=== PATIENT | female | born 1955 | race Caucasian/White ===

== ENCOUNTER 2016-12-03 16:41 | Emergency (ER) | payer OTHER, MEDICARE, MEDICAID ==
[~2016-12-03] VITALS: Wt 55.3 kg
[~2016-12-03 16:41] MED LIST: AMBIEN5 MG PO; AMOXICILLIN500 M2 PO; ANAPROX DS550 MG PO; ATIVAN1 MG PO; ATIVAN2 MG PO; AUGMENTIN 875 M1 TAB PO; CARAFATE1 G1 PO; CIPRODEX 0.3%-7.5 ML OT; CLARITIN10 MG PO; DARVOCET N 1001 TAB PO; EFFEXOR XR75 M1 PO; EFFEXOR-XR150 MG PO; EFFEXOR75 MG PO; FLAGYL250 MG PO; FLEXERIL10 MG PO; FLEXERIL5 MG PO; HYDROCODONE BIT1 T11 PO; LAMICTAL150 MG PO; LAMICTAL200 MG PO; LOMOTIL 0.025 M1 TA1 PO; MEDROL DOSEPAK4 MG PO; MOTRIN800 MG PO; NAPROSYN500 MG PO; NEXIUM40 MG PO; NORCO 325 MG-51 TAB PO; OTOZIN EAR DROP10 ML OT; PEPCID20 MG PO; PRENATAL1 TA6 PO; PROVENTIL0.09 MG/AC IH; REGLAN10 M1 PO; TOPAMAX100 MG PO; TOPAMAX200 MG PO; VICODIN 5/500 505 MG PO; VOLTAREN50 M1 PO; ZYRTEC10 MG PO
[2016-12-03 16:44] VITALS: BP 121/82
[2016-12-03] MEDS ORDERED: VENLAFAXINE HYD75 M3 PO (16:45)
[2016-12-03] MEDS ORDERED: VENLAFAXINE HY150 M2 PO (16:45)
[2016-12-03] MEDS ORDERED: TOPIRAMATE200 M2 PO (16:45)
[2016-12-03] MEDS ORDERED: LORAZEPAM2 MG PO (16:46)
[2016-12-03] MEDS ORDERED: ESCITALOPRAM OX20 MG PO (16:47)
== END 2016-12-03 18:39 | disposition home or self-care (01) ==
LOC: ED 16:41
DX: S40.021A Contusion of right upper arm, initial encounter (principal); F17.200 Nicotine dependence, unspecified, uncomplicated; Z90.49 Acquired absence of other specified parts of digestive tract; Z98.51 Tubal ligation status; Z79.899 Other long term (current) drug therapy; Z88.6 Allergy status to analgesic agent; Z88.1 Allergy status to other antibiotic agents; V49.59XA Passenger injured in collision with other motor vehicles in traffic accident, initial encounter; Y93.89 Activity, other specified; Y92.481 Parking lot as the place of occurrence of the external cause; Y99.9 Unspecified external cause status

== ENCOUNTER → 2017-01-06 | Outpatient (CLI) | payer MEDICARE, MEDICAID ==
[~2017-01-06] MED LIST changes: +ESCITALOPRAM OX20 MG PO; +LORAZEPAM2 MG PO; +TOPIRAMATE200 M2 PO; +VENLAFAXINE HY150 M2 PO; +VENLAFAXINE HYD75 M3 PO
== END | disposition home or self-care (01) ==
LOC: MAMMO 12-09 13:00 → RAD 12-09 13:30 → MAMMO 12:34
DX: Z12.31 Encounter for screening mammogram for malignant neoplasm of breast (principal); Z13.820 Encounter for screening for osteoporosis; Z78.0 Asymptomatic menopausal state

== ENCOUNTER 2017-09-09 16:47 | Emergency (ER) | payer MEDICARE, MEDICAID ==
[~2017-09-09] VITALS: Ht 157.4 cm; Wt 57.2 kg
[2017-09-09 16:59] VITALS: BP 114/76
[2017-09-09] MEDS ORDERED: AUGMENTIN 875875 MG PO (17:38)
== END 2017-09-09 17:41 | disposition home or self-care (01) ==
LOC: ED 16:47
DX: J01.80 Other acute sinusitis (principal); H92.02 Otalgia, left ear; F17.200 Nicotine dependence, unspecified, uncomplicated; Z90.49 Acquired absence of other specified parts of digestive tract; Z98.51 Tubal ligation status; Z79.899 Other long term (current) drug therapy; Z88.6 Allergy status to analgesic agent; Z88.8 Allergy status to other drugs, medicaments and biological substances

== ENCOUNTER → 2018-02-03 | Day surgery (SDC) | payer MEDICARE, MEDICAID ==
[~2018-02-03] VITALS: Ht 157.4 cm; Wt 55.3 kg
[~2018-02-03] MED LIST changes: +AUGMENTIN 875875 MG PO; +FIBERCON625 MG PO; +SUNMARK OMEPRAZ20 M1 PO
--- NOTE | ~2018-02-03 | O ---
[place], [place] OPERATIVE NOTE NAME: KASSI QUIROGA UNIT #: [id number] ROOM: DOCTOR: LAURA MONTENEGRO MD BIRTHDATE: [birth year] DOS: 02/03/2018 HISTORY OF PRESENT ILLNESS: A 62-year-old patient who has presented with chief complaint of chronic diarrhea, 2-3 watery BM, and dyspepsia. ALLERGIES: DAYPRO AND ULTRAM. FAMILY HISTORY: Noncontributory. PAST SURGICAL HISTORY: Left knee and cholecystectomy. PAST MEDICAL HISTORY: Vitamin D deficiency, hypercholesterolemia, depression, and anxiety. SOCIAL HISTORY: One pack smoker, nonalcohol consumer. PROCEDURE: Today's procedure part of investigation is colonoscopy and panendoscopy. PREMEDICATION: Propofol. SCOPE: Olympus forward-viewing gastroscope Q10 video. REPORT: After putting the patient in left lateral position and application of lubricant to the scope, the scope was introduced. Thereafter, under direct visualization, I advanced through the length of the esophagus without difficulty into gastric pouch. After passing through a small hiatal hernia about 1.5 cm. Gastritis seen and duodenitis noticed both in mild degree. Antral biopsy obtained. Photographic series obtained. The patient was extubated, tolerated the procedure well. IMPRESSION: Hiatal hernia, diverticulosis, and gastritis. PLAN AND DISCUSSION: Omeprazole 20 mg daily. We are going to proceed with colonoscopy. INDICATIONS: The patient has presented with loose stool and change in bowel habit. PROCEDURE: Today's procedure part of investigation is colonoscopy plus photographic series plus biopsy. Piecemeal polypectomy. PREMEDICATION: Propofol. SCOPE: Olympus forward-viewing colonoscope 10L video. REPORT: After putting the patient in left lateral position and application of lubricant to the scope, the scope was introduced. Thereafter, under direct visualization, I advanced through the length of colon without difficulty. Colon is extremely tortuous; however, we managed to visualize the base of the cecum, [place], [place] OPERATIVE NOTE NAME: KASSI QUIROGA UNIT #: [id number] ROOM: DOCTOR: LAURA MONTENEGRO MD BIRTHDATE: [birth year] appendiceal orifice, and ileocecal valve was photographed. Scope was gradually withdrawn along the length of ascending, transverse, and descending colon. Diverticulosis was noticed. Sessile polypoid lesion with piecemeal polypectomy removed. Air was suctioned out. The patient was extubated, tolerated the procedure well. IMPRESSION: Diverticulosis, tortuous colon, and sessile colonic polyp. PLAN AND DISCUSSION: FiberCon 2 tablets b.i.d., would help the consistency of the stool and otherwise we will follow as outpatient. The patient advised to have routine follow up with you in office and with us in [facility] in 2 weeks. Thank you very much indeed. LAURA MONTENEGRO MD CM:OPRECORD:OPERATIVE NOTE [id number] LAURA MONTENEGRO MD 02/15/18 [id number] interface
[2018-02-03 11:30] VITALS: BP 104/56
[2018-02-03 13:12] VITALS: BP 107/57
[2018-02-03 13:20] VITALS: BP 107/63
[2018-02-03 13:45] VITALS: BP 102/61
== END | disposition home or self-care (01) ==
LOC: SDC 02-02 09:30
DX: D12.5 Benign neoplasm of sigmoid colon (principal); K52.9 Noninfective gastroenteritis and colitis, unspecified; K56.2 Volvulus; K57.30 Diverticulosis of large intestine without perforation or abscess without bleeding; K29.50 Unspecified chronic gastritis without bleeding; K29.80 Duodenitis without bleeding; K44.9 Diaphragmatic hernia without obstruction or gangrene; K21.9 Gastro-esophageal reflux disease without esophagitis; F41.8 Other specified anxiety disorders; F17.210 Nicotine dependence, cigarettes, uncomplicated; Z90.49 Acquired absence of other specified parts of digestive tract; Z98.51 Tubal ligation status; Z88.6 Allergy status to analgesic agent; Z88.5 Allergy status to narcotic agent; Z79.899 Other long term (current) drug therapy

== ENCOUNTER 2018-06-05 14:58 | Emergency (ER) | payer MEDICARE, MEDICAID ==
[~2018-06-05] VITALS: Ht 157.4 cm; Wt 55.3 kg
[2018-06-05 14:58] VITALS: BP 123/75
[2018-06-05 15:38] LABS: BASO % 0.7 % (0.0-1.0); EOS # 0.2 10*3/uL (0.0-0.4); EOS % 2.7 % (1.0-4.0); HEMATOCRIT 41.6 % (37.0-47.0); HEMOGLOBIN 13.2 g/dl (12.0-16.0); LYMPH # 2.2 10*3/uL (1.3-4.4); LYMPH % 39.9 % (27.0-41.0); MEAN CELL VOLUME 98.6 fl (81.0-99.0); MEAN CORPUSCULAR HGB 31.3 pg (27.0-31.0); MEAN CORPUSCULAR HGB CONC 31.7 g/dl (33.0-37.0); MEAN PLATELET VOLUME 9.3 fl (9.6-12.3); MONO # 0.2 10*3/uL (0.1-1.0); MONO % 3.8 % (3.0-9.0); NEUT % 52.7 % (47.0-73.0); PLATELET COUNT AUTOMATED 263 10*3/uL (130-400); RED BLOOD COUNT 4.22 10*6/uL (4.10-5.10); RED CELL DISTRI WIDTH 13.3 % (0-14.5); WHITE BLOOD COUNT 5.6 10*3/uL (4.8-10.8)
[2018-06-05 15:55] LABS: ALBUMIN 3.9 gm/dl (3.1-4.5); ALKALINE PHOSPHATASE 88 U/L (45-117); BUN 13 mg/dl (7-24); CHLORIDE 108 mmol/L (98-107); CREATININE 0.96 mg/dL (0.55-1.02); LIPASE 105 U/L (73-393); POTASSIUM 3.7 mmol/L (3.5-5.1); SGOT/AST 15 IU/L (3-35); SGPT/ALT 21 U/L (12-78); SODIUM 139 mmol/L (136-145); TOTAL PROTEIN 7.9 gm/dL (6.4-8.2)
== END 2018-06-05 17:21 | disposition home or self-care (01) ==
LOC: ED 14:58
PROVIDERS: Physician Assistant
DX: R19.7 Diarrhea, unspecified (principal); R53.1 Weakness; R25.2 Cramp and spasm; Z88.6 Allergy status to analgesic agent; Z88.8 Allergy status to other drugs, medicaments and biological substances; Z79.899 Other long term (current) drug therapy; Z90.49 Acquired absence of other specified parts of digestive tract

== ENCOUNTER → 2018-12-05 | Outpatient (CLI) | payer MEDICARE, MEDICAID ==
[~2018-12-05] MED LIST changes: +MACROBID100 M1 PO; +PYRIDIUM100 MG PO
== END | disposition home or self-care (01) ==
LOC: MAMMO 15:00
DX: Z12.31 Encounter for screening mammogram for malignant neoplasm of breast (principal)

== ENCOUNTER → 2020-04-08 | Outpatient (CLI) | payer OTHER, MEDICAID | END | disposition home or self-care (01) | LOC: RAD 13:20 → MAMMO 14:30 | PROVIDERS: ATTEND Nurse Practitioner Primary Care | DX: Z12.31 Encounter for screening mammogram for malignant neoplasm of breast (principal); N64.89 Other specified disorders of breast; Z78.0 Asymptomatic menopausal state ==

== ENCOUNTER → 2020-09-10 | Outpatient (CLI) | payer OTHER, MEDICAID ==
[~2020-09-10] MED LIST changes: +PROTONIX40 MG PO; +REXULTI1 MG PO
== END | disposition home or self-care (01) ==
LOC: COVID19 11:30
PROVIDERS: ATTEND Nurse Practitioner Primary Care
DX: Z01.812 Encounter for preprocedural laboratory examination (principal); Z20.822 Contact with and (suspected) exposure to COVID-19

== ENCOUNTER → 2020-09-15 | Day surgery (SDC) | payer OTHER, MEDICAID ==
[~2020-09-15] VITALS: Ht 157.4 cm; Wt 61.2 kg
[2020-09-15 07:26] VITALS: BP 107/65
[2020-09-15 08:43] VITALS: BP 111/65
[2020-09-15 08:58] VITALS: BP 105/70
[2020-09-15 09:10] VITALS: BP 103/53
[2020-09-15 09:52] VITALS: BP 105/70
== END ==
LOC: SDC 09-11 08:45
PROVIDERS: ATTEND Surgery
DX: R19.7 Diarrhea, unspecified (principal); D12.2 Benign neoplasm of ascending colon; D12.3 Benign neoplasm of transverse colon; D12.5 Benign neoplasm of sigmoid colon; K57.30 Diverticulosis of large intestine without perforation or abscess without bleeding; K29.80 Duodenitis without bleeding; K29.50 Unspecified chronic gastritis without bleeding; K21.9 Gastro-esophageal reflux disease without esophagitis; E78.00 Pure hypercholesterolemia, unspecified; F31.9 Bipolar disorder, unspecified; F41.9 Anxiety disorder, unspecified; Z90.49 Acquired absence of other specified parts of digestive tract; Z86.010 Personal history of colon polyps; Z98.890 Other specified postprocedural states; Z79.899 Other long term (current) drug therapy

== ENCOUNTER → 2020-10-31 | Outpatient (CLI) | payer OTHER, MEDICAID | END | disposition home or self-care (01) | LOC: LAB 13:01 | PROVIDERS: ATTEND Nurse Practitioner Primary Care | DX: M54.9 Dorsalgia, unspecified (principal); Z90.49 Acquired absence of other specified parts of digestive tract ==

== ENCOUNTER → 2020-12-26 | Outpatient (CLI) | payer OTHER, MEDICAID | END | disposition home or self-care (01) | LOC: US 12-22 12:00 | PROVIDERS: ATTEND Nurse Practitioner Primary Care | DX: N32.89 Other specified disorders of bladder (principal); R31.9 Hematuria, unspecified ==

== ENCOUNTER → 2021-03-13 | Outpatient (CLI) | payer OTHER, MEDICAID | END | disposition home or self-care (01) | LOC: RAD 11:15 | PROVIDERS: ATTEND Nurse Practitioner Primary Care | DX: M47.817 Spondylosis without myelopathy or radiculopathy, lumbosacral region (principal); M41.86 Other forms of scoliosis, lumbar region; Z90.49 Acquired absence of other specified parts of digestive tract; G89.29 Other chronic pain ==

== ENCOUNTER 2021-04-06 09:17 | Emergency (ER) | payer OTHER, MEDICAID ==
[~2021-04-06] VITALS: Ht 157.4 cm; Wt 61.2 kg
[2021-04-06 09:22] VITALS: BP 124/82
[2021-04-06] MEDS ORDERED: HYDROCODONE-AC1 EAC1 PO (10:11)
[2021-04-06] MEDS ORDERED: SILVADENE,SSD C50 GM T (10:11)
== END 2021-04-06 10:21 | disposition home or self-care (01) ==
LOC: ED 09:17
DX: T24.012A Burn of unspecified degree of left thigh, initial encounter (principal); T31.0 Burns involving less than 10% of body surface; Z88.8 Allergy status to other drugs, medicaments and biological substances; Z79.899 Other long term (current) drug therapy; X10.0XXA Contact with hot drinks, initial encounter; Y93.89 Activity, other specified; Y92.89 Other specified places as the place of occurrence of the external cause; Y99.8 Other external cause status

== ENCOUNTER 2021-04-12 09:06 | Emergency (ER) | payer OTHER, MEDICAID ==
[~2021-04-12] VITALS: Ht 157.4 cm; Wt 61.2 kg
[~2021-04-12 09:06] MED LIST changes: +HYDROCODONE-AC1 EAC1 PO; +SILVADENE,SSD C50 GM T
[2021-04-12 09:15] VITALS: BP 125/70
[2021-04-12] MEDS ORDERED: HYDROCODONE-AC1 EAC1 PO (09:42)
== END 2021-04-12 10:18 | disposition home or self-care (01) ==
LOC: ED 09:06
DX: T24.002A Burn of unspecified degree of unspecified site of left lower limb, except ankle and foot, initial encounter (principal); X12.XXXA Contact with other hot fluids, initial encounter; Y93.89 Activity, other specified; Y92.89 Other specified places as the place of occurrence of the external cause; Y99.8 Other external cause status

== ENCOUNTER → 2021-04-14 | Outpatient (CLI) | payer OTHER, MEDICAID | LOC: WOUNDCARE 01:32 | PROVIDERS: ATTEND Nurse Practitioner | DX: T24.312A Burn of third degree of left thigh, initial encounter (principal); T31.0 Burns involving less than 10% of body surface; M19.90 Unspecified osteoarthritis, unspecified site; F41.9 Anxiety disorder, unspecified; F32.9 Major depressive disorder, single episode, unspecified; Z90.49 Acquired absence of other specified parts of digestive tract; Z98.890 Other specified postprocedural states; Z79.899 Other long term (current) drug therapy; X12.XXXA Contact with other hot fluids, initial encounter ==

== ENCOUNTER 2021-05-16 10:28 | Emergency (ER) | payer OTHER, MEDICAID ==
[~2021-05-16] VITALS: Ht 157.4 cm; Wt 61.2 kg
[2021-05-16 10:36] VITALS: BP 131/74
[2021-05-16 12:14] LABS: BASO % 0.6 % (0.0-1.0); EOS # 0.2 10*3/uL (0.0-0.4); EOS % 3.4 % (1.0-4.0); HEMATOCRIT 42.3 % (37.0-47.0); LYMPH # 1.9 10*3/uL (1.3-4.4); LYMPH % 29.6 % (27.0-41.0); MEAN CELL VOLUME 97.9 fl (81.0-99.0); MEAN CORPUSCULAR HGB 30.6 pg (27.0-31.0); MEAN CORPUSCULAR HGB CONC 31.2 g/dl (33.0-37.0); MEAN PLATELET VOLUME 9.1 fl (9.6-12.3); MONO # 0.4 10*3/uL (0.1-1.0); MONO % 5.4 % (3.0-9.0); NEUT % 60.7 % (47.0-73.0); PLATELET COUNT AUTOMATED 286 10*3/uL (130-400); RED BLOOD COUNT 4.32 10*6/uL (4.10-5.10); RED CELL DISTRI WIDTH 13.2 % (0-14.5); WHITE BLOOD COUNT 6.5 10*3/uL (4.8-10.8)
[2021-05-16 12:30] LABS: ALBUMIN 3.3 gm/dl (3.1-4.5); ALKALINE PHOSPHATASE 106 U/L (45-117); BUN 10 mg/dl (7-24); CHLORIDE 111 mmol/L (98-107); CREATININE 1.04 mg/dL (0.55-1.02); POTASSIUM 3.7 mmol/L (3.5-5.1); SGOT/AST 23 IU/L (3-35); SGPT/ALT 29 U/L (12-78); SODIUM 140 mmol/L (136-145); TOTAL PROTEIN 7.7 gm/dL (6.4-8.2)
[2021-05-16] MEDS ORDERED: PREDNISONE20 M1 PO (13:04)
== END 2021-05-16 13:16 | disposition home or self-care (01) ==
LOC: ED 10:28
PROVIDERS: Physician Assistant
DX: J40 Bronchitis, not specified as acute or chronic (principal); Z88.8 Allergy status to other drugs, medicaments and biological substances; Z79.899 Other long term (current) drug therapy

== ENCOUNTER → 2021-10-12 | Day surgery (SDC) | payer OTHER, MEDICAID ==
[~2021-10-12] VITALS: Ht 157.4 cm; Wt 70.3 kg
[~2021-10-12] MED LIST changes: +PREDNISONE20 M1 PO
[2021-10-12 07:07] VITALS: BP 138/78
[2021-10-12 08:27] VITALS: BP 102/65
[2021-10-12 08:30] VITALS: BP 102/59
[2021-10-12 08:44] VITALS: BP 110/42
== END | disposition home or self-care (01) ==
LOC: SDC 09-28 09:30
PROVIDERS: ATTEND Surgery
DX: Z09 Encounter for follow-up examination after completed treatment for conditions other than malignant neoplasm (principal); D12.4 Benign neoplasm of descending colon; Z86.010 Personal history of colon polyps; K57.30 Diverticulosis of large intestine without perforation or abscess without bleeding; F31.9 Bipolar disorder, unspecified; K21.9 Gastro-esophageal reflux disease without esophagitis; F41.9 Anxiety disorder, unspecified; F17.210 Nicotine dependence, cigarettes, uncomplicated; Z79.899 Other long term (current) drug therapy; Z20.822 Contact with and (suspected) exposure to COVID-19

== ENCOUNTER → 2021-11-02 | Outpatient (CLI) | payer OTHER, MEDICAID | END | disposition home or self-care (01) | LOC: MAMMO 14:16 | PROVIDERS: ATTEND Nurse Practitioner Primary Care | DX: Z12.31 Encounter for screening mammogram for malignant neoplasm of breast (principal) ==

== ENCOUNTER 2021-11-26 01:41 | Emergency (ER) | payer OTHER, MEDICAID ==
[~2021-11-26] VITALS: Ht 157.4 cm; Wt 74.8 kg
[2021-11-26 01:51] VITALS: BP 132/73
== END 2021-11-26 02:59 | disposition home or self-care (01) ==
LOC: ED 01:41
DX: S51.011A Laceration without foreign body of right elbow, initial encounter (principal); S60.211A Contusion of right wrist, initial encounter; Z88.8 Allergy status to other drugs, medicaments and biological substances; Z79.899 Other long term (current) drug therapy; Z90.49 Acquired absence of other specified parts of digestive tract; Z98.51 Tubal ligation status; W19.XXXA Unspecified fall, initial encounter; Y93.89 Activity, other specified; Y92.89 Other specified places as the place of occurrence of the external cause; Y99.8 Other external cause status

== ENCOUNTER → 2021-12-04 | Outpatient (CLI) | payer OTHER, MEDICAID | END | disposition home or self-care (01) | LOC: CT 11-24 09:00 | PROVIDERS: ATTEND Nurse Practitioner Primary Care | DX: R91.1 Solitary pulmonary nodule (principal); Z90.49 Acquired absence of other specified parts of digestive tract ==

== ENCOUNTER 2022-05-12 11:36 | Emergency (ER) | payer OTHER, MEDICAID ==
[~2022-05-12] VITALS: Ht 157.4 cm; Wt 72.6 kg
[2022-05-12 11:45] VITALS: BP 129/91
[2022-05-12] MEDS ORDERED: BUPROPION HYDR150 M1 PO (11:59)
[2022-05-12 12:45] LABS: BASO % 0.6 % (0.0-1.0); EOS # 0.1 10*3/uL (0.0-0.4); EOS % 1.5 % (1.0-4.0); LYMPH # 1.6 10*3/uL (1.3-4.4); MEAN CELL VOLUME 96.4 fl (81.0-99.0); MEAN CORPUSCULAR HGB 31.2 pg (27.0-31.0); MEAN CORPUSCULAR HGB CONC 32.3 g/dl (33.0-37.0); MEAN PLATELET VOLUME 8.9 fl (9.6-12.3); MONO # 0.4 10*3/uL (0.1-1.0); MONO % 5.3 % (3.0-9.0); NEUT # 5.1 10*3/uL (2.3-7.9); NEUT % 70.5 % (47.0-73.0); PLATELET COUNT AUTOMATED 305 10*3/uL (130-400); RED BLOOD COUNT 4.46 10*6/uL (4.10-5.10); RED CELL DISTRI WIDTH 13.9 % (0-14.5); WHITE BLOOD COUNT 7.2 10*3/uL (4.8-10.8)
[2022-05-12 13:00] LABS: CREATININE 1.23 mg/dL (0.55-1.02); POTASSIUM 4.6 mmol/L (3.5-5.1); TOTAL PROTEIN 7.9 gm/dL (6.4-8.2)
== END 2022-05-12 16:10 | disposition home or self-care (01) ==
LOC: ED 11:36
PROVIDERS: Physician Assistant
DX: R19.7 Diarrhea, unspecified (principal); Z20.822 Contact with and (suspected) exposure to COVID-19; E86.0 Dehydration; R11.0 Nausea; R05.9 Cough, unspecified; R42 Dizziness and giddiness; Z88.8 Allergy status to other drugs, medicaments and biological substances; Z79.899 Other long term (current) drug therapy; Z90.49 Acquired absence of other specified parts of digestive tract; Z98.51 Tubal ligation status

== ENCOUNTER → 2022-08-31 | Outpatient (CLI) | payer OTHER, MEDICAID ==
[~2022-08-31] MED LIST changes: +BUPROPION HYDR150 M1 PO
== END | disposition home or self-care (01) ==
LOC: LAB 11:07
PROVIDERS: ATTEND Surgery
DX: K57.30 Diverticulosis of large intestine without perforation or abscess without bleeding (principal)

== ENCOUNTER → 2022-09-02 | Outpatient (CLI) | payer OTHER, MEDICAID | END | disposition home or self-care (01) | LOC: CT 08-30 09:00 | PROVIDERS: ATTEND Surgery | DX: K57.30 Diverticulosis of large intestine without perforation or abscess without bleeding (principal); K76.0 Fatty (change of) liver, not elsewhere classified; Z90.49 Acquired absence of other specified parts of digestive tract ==

== ENCOUNTER → 2023-03-25 | Outpatient (CLI) | payer OTHER, MEDICAID ==
[2023-03-25 09:46] LABS: BASO # 0.1 10*3/uL (0.0-0.1); BASO % 0.5 % (0.0-1.0); EOS # 0.1 10*3/uL (0.0-0.4); EOS % 1.4 % (1.0-4.0); HEMATOCRIT 45.3 % (37.0-47.0); LYMPH # 1.7 10*3/uL (1.3-4.4); LYMPH % 16.7 % (27.0-41.0); MEAN CELL VOLUME 97.6 fl (81.0-99.0); MEAN CORPUSCULAR HGB 31.5 pg (27.0-31.0); MEAN CORPUSCULAR HGB CONC 32.2 g/dl (33.0-37.0); MEAN PLATELET VOLUME 9.5 fl (9.6-12.3); MONO # 0.6 10*3/uL (0.1-1.0); MONO % 5.4 % (3.0-9.0); NEUT # 7.8 10*3/uL (2.3-7.9); NEUT % 75.6 % (47.0-73.0); PLATELET COUNT AUTOMATED 296 10*3/uL (130-400); RED BLOOD COUNT 4.64 10*6/uL (4.10-5.10); RED CELL DISTRI WIDTH 14.4 % (0-14.5); WHITE BLOOD COUNT 10.3 10*3/uL (4.8-10.8)
[2023-03-25 09:57] LABS: INTERNATIONAL NORM RATIO 0.9 (2.0-3.5)
[2023-03-25 10:07] LABS: ALKALINE PHOSPHATASE 191 U/L (46-116); LDH 224 U/L (120-246); SGPT/ALT 111 U/L (10-49); TOTAL PROTEIN 7.4 gm/dL (6.0-8.0)
[2023-03-26 03:06] LABS: ALKALINE PHOSPHATASE, SERUM 201 IU/L (44-121)
[2023-03-28 16:07] LABS: BONE FRACTION 29 % (14-68); INTESTINAL FRACTION 3 % (0-18); LIVER FRACTION 67 % (18-85)
== END | disposition home or self-care (01) ==
LOC: US 03-24 10:30 → LAB 08:23
PROVIDERS: ATTEND Internal Medicine Gastroenterology
DX: K76.0 Fatty (change of) liver, not elsewhere classified (principal); R74.8 Abnormal levels of other serum enzymes; R10.13 Epigastric pain

== ENCOUNTER 2023-07-31 12:00 | Emergency (ER) | payer OTHER, MEDICAID ==
[~2023-07-31] VITALS: Wt 83.9 kg
[~2023-07-31 12:00] MED LIST changes: +ATORVASTATIN CA10 M1 PO; +DOXEPIN50 MG PO; +DOXYCYCLINE HY100 M3 PO; +PREDNISONE10 MG PO; +REXULTI2 MG PO
[2023-07-31 12:09] VITALS: BP 140/84
[2023-07-31] MEDS ORDERED: SEPTDS PO ×2 (12:26)
[2023-08-01] MEDS ORDERED: ONDANSETRON4 MG SL ×2 (23:30)
== END 2023-07-31 12:31 | disposition home or self-care (01) ==
LOC: ED 12:00
DX: L03.115 Cellulitis of right lower limb (principal); F41.9 Anxiety disorder, unspecified; J44.9 Chronic obstructive pulmonary disease, unspecified; F32.A Depression, unspecified; Z88.8 Allergy status to other drugs, medicaments and biological substances; Z90.49 Acquired absence of other specified parts of digestive tract; Z98.51 Tubal ligation status; F12.90 Cannabis use, unspecified, uncomplicated; F17.200 Nicotine dependence, unspecified, uncomplicated

== ENCOUNTER 2023-09-08 09:17 | Emergency (ER) | payer OTHER, MEDICAID ==
[~2023-09-08] VITALS: Ht 157.4 cm; Wt 83.9 kg
[~2023-09-08 09:17] MED LIST changes: +LIPITOR10 MG PO; +MECLIZINE HCL PO; +ONDANSETRON4 MG SL; +PREDNISONE50 MG PO; +PROVENTIL HFA6.7 GM INH; +SEPTDS PO; +ZITHROMAX250 MG PO
[2023-09-08 09:23] VITALS: BP 135/80
[2023-09-08] MEDS ORDERED: Albuterol Sulf/Ipratropium 3 ML VIAL NEB ONE (09:30)
[2023-09-08 09:50] LABS: BASO % 0.6 % (0.0-1.0); EOS # 0.2 10*3/uL (0.0-0.4); EOS % 2.1 % (1.0-4.0); HEMATOCRIT 43.8 % (37.0-47.0); LYMPH # 1.8 10*3/uL (1.3-4.4); LYMPH % 25.1 % (27.0-41.0); MEAN CELL VOLUME 97.8 fl (81.0-99.0); MEAN CORPUSCULAR HGB 30.6 pg (27.0-31.0); MEAN CORPUSCULAR HGB CONC 31.3 g/dl (33.0-37.0); MEAN PLATELET VOLUME 8.9 fl (9.6-12.3); MONO # 0.4 10*3/uL (0.1-1.0); MONO % 5.9 % (3.0-9.0); NEUT # 4.8 10*3/uL (2.3-7.9); NEUT % 65.7 % (47.0-73.0); PLATELET COUNT AUTOMATED 322 10*3/uL (130-400); RED BLOOD COUNT 4.48 10*6/uL (4.10-5.10); WHITE BLOOD COUNT 7.3 10*3/uL (4.8-10.8)
[2023-09-08 10:02] LABS: ACT PARTIAL THROMBO TIME 26.8 SECONDS (20.0-32.1)
[2023-09-08 10:15] LABS: POTASSIUM 4.1 mmol/L (3.4-5.1); TOTAL PROTEIN 7.5 gm/dL (6.0-8.0)
[2023-09-08] MEDS ORDERED: methylPREDNISolone sod succ 125 MG VIAL IM ONE (12:40)
[2023-09-08] MEDS ORDERED: ZITHROMAX250 MG PO (12:45)
[2023-09-08] MEDS ORDERED: PREDNISONE50 MG PO (12:45)
[2023-09-08] MEDS ORDERED: AZITHROMYCIN 250 MG TAB PO ONE (12:45)
== END 2023-09-08 12:51 | disposition home or self-care (01) ==
LOC: ED 09:17
PROVIDERS: Emergency Medicine
DX: J44.1 Chronic obstructive pulmonary disease with (acute) exacerbation (principal); F17.200 Nicotine dependence, unspecified, uncomplicated; Z88.8 Allergy status to other drugs, medicaments and biological substances; Z79.899 Other long term (current) drug therapy; Z79.2 Long term (current) use of antibiotics; Z98.51 Tubal ligation status; Z90.49 Acquired absence of other specified parts of digestive tract

== ENCOUNTER 2023-09-14 19:21 | Emergency (ER) | payer OTHER, MEDICAID ==
[~2023-09-14] VITALS: Ht 157.4 cm; Wt 83.9 kg
[~2023-09-14 19:21] MED LIST changes: -BREYNA 80-4.510.3 GM INH; -IOHEXOL 350 MG/ML 100 ML VIAL IV ONE; -METFORMIN XR500 MG PO; -SODIUM CHLORIDE 0.9% 100 ML BAG IV ONE; -XARE15TA PO
[2023-09-14 19:25] VITALS: BP 138/85
[2023-09-14] MEDS ORDERED: RIVAROXABAN 15 MG TAB PO ONE (19:50)
[2023-09-14 19:56] LABS: BASO # 0.1 10*3/uL (0.0-0.1); BASO % 0.4 % (0.0-1.0); EOS # 0.1 10*3/uL (0.0-0.4); HEMATOCRIT 43.9 % (37.0-47.0); LYMPH # 4.1 10*3/uL (1.3-4.4); LYMPH % 28.9 % (27.0-41.0); MEAN CELL VOLUME 97.3 fl (81.0-99.0); MEAN CORPUSCULAR HGB 30.2 pg (27.0-31.0); MEAN PLATELET VOLUME 9.1 fl (9.6-12.3); MONO # 0.8 10*3/uL (0.1-1.0); MONO % 5.6 % (3.0-9.0); NEUT # 8.9 10*3/uL (2.3-7.9); NEUT % 63.4 % (47.0-73.0); PLATELET COUNT AUTOMATED 313 10*3/uL (130-400); RED BLOOD COUNT 4.51 10*6/uL (4.10-5.10); RED CELL DISTRI WIDTH 14.6 % (0-14.5)
[2023-09-14] MEDS ORDERED: BREYNA 80-4.510.3 GM INH (20:05)
[2023-09-14] MEDS ORDERED: METFORMIN XR500 MG PO (20:06)
[2023-09-14 20:17] LABS: POTASSIUM 4.1 mmol/L (3.4-5.1)
[2023-09-14] MEDS ORDERED: XARE15TA PO (20:44)
== END 2023-09-14 21:02 | disposition home or self-care (01) ==
LOC: ED 19:21
PROVIDERS: Physician Assistant Medical
DX: I26.99 Other pulmonary embolism without acute cor pulmonale (principal); R42 Dizziness and giddiness; R06.02 Shortness of breath; J44.9 Chronic obstructive pulmonary disease, unspecified; F17.200 Nicotine dependence, unspecified, uncomplicated; Z88.8 Allergy status to other drugs, medicaments and biological substances; Z79.899 Other long term (current) drug therapy; Z98.51 Tubal ligation status; Z90.49 Acquired absence of other specified parts of digestive tract

== ENCOUNTER → 2023-09-14 | Outpatient (CLI) | payer OTHER, MEDICAID ==
[~2023-09-14] MED LIST changes: +BREYNA 80-4.510.3 GM INH; +IOHEXOL 350 MG/ML 100 ML VIAL IV ONE; +METFORMIN XR500 MG PO; +SODIUM CHLORIDE 0.9% 100 ML BAG IV ONE; +XARE15TA PO
== END | disposition home or self-care (01) ==
LOC: CT 15:34
PROVIDERS: ATTEND Nurse Practitioner
DX: I26.99 Other pulmonary embolism without acute cor pulmonale (principal); R91.1 Solitary pulmonary nodule; I25.10 Atherosclerotic heart disease of native coronary artery without angina pectoris; J43.9 Emphysema, unspecified

== ENCOUNTER → 2023-09-22 | Outpatient (CLI) | payer OTHER, MEDICAID ==
[~2023-09-22] MED LIST changes: +BREYNA 80-4.510.3 GM INH; +METFORMIN XR500 MG PO; +XARE15TA PO
[2023-09-24 00:06] LABS: ACTIVATED PROTEIN C 3.3 ratio (2.2-3.5)
[2023-09-24 07:07] LABS: DVVTMIXRFX CHG (NP); HEXAGONAL PHASE PHOSPHOLIPID 6 sec (0-11); PTT-LA 53.8 sec (0.0-43.5); PTT-LA MIX 47.7 sec (0.0-40.5)
[2023-09-24 08:09] LABS: LUPUS REFLEX INTERPRETATION Comment: (.)
== END | disposition home or self-care (01) ==
LOC: LAB 10:00
PROVIDERS: ATTEND Internal Medicine Critical Care Medicine
DX: I26.99 Other pulmonary embolism without acute cor pulmonale (principal)

== ENCOUNTER → 2023-10-10 | Outpatient (CLI) | payer OTHER, MEDICAID | END | disposition home or self-care (01) | LOC: MAMMO 01:38 | PROVIDERS: ATTEND Nurse Practitioner | DX: Z12.31 Encounter for screening mammogram for malignant neoplasm of breast (principal) ==

== ENCOUNTER 2023-11-06 12:51 | Emergency (ER) | payer OTHER, MEDICAID ==
[~2023-11-06] VITALS: Ht 157.4 cm; Wt 86.2 kg
[2023-11-06 13:07] LABS: BASO # 0.1 10*3/uL (0.0-0.1); BASO % 0.7 % (0.0-1.0); EOS # 0.1 10*3/uL (0.0-0.4); EOS % 1.5 % (1.0-4.0); HEMATOCRIT 44.9 % (37.0-47.0); LYMPH # 1.7 10*3/uL (1.3-4.4); LYMPH % 22.7 % (27.0-41.0); MEAN CELL VOLUME 97.6 fl (81.0-99.0); MEAN CORPUSCULAR HGB 30.4 pg (27.0-31.0); MEAN CORPUSCULAR HGB CONC 31.2 g/dl (33.0-37.0); MEAN PLATELET VOLUME 9.2 fl (9.6-12.3); MONO # 0.4 10*3/uL (0.1-1.0); MONO % 5.8 % (3.0-9.0); NEUT # 5.1 10*3/uL (2.3-7.9); PLATELET COUNT AUTOMATED 325 10*3/uL (130-400); WHITE BLOOD COUNT 7.4 10*3/uL (4.8-10.8)
[2023-11-06 13:18] LABS: ACT PARTIAL THROMBO TIME 40.2 SECONDS (20.0-32.1)
[2023-11-06 13:23] LABS: ALKALINE PHOSPHATASE 114 U/L (46-116); BUN 11 mg/dl (9-23); CHLORIDE 104 mmol/L (98-107); POTASSIUM 4.2 mmol/L (3.4-5.1); SGPT/ALT 43 U/L (5-49); TOTAL PROTEIN 7.5 gm/dL (6.0-8.0)
[2023-11-06 14:29] VITALS: BP 116/78
== END 2023-11-06 15:37 | disposition home or self-care (01) ==
LOC: ED 12:51
PROVIDERS: Internal Medicine
DX: R07.89 Other chest pain (principal); R11.0 Nausea; J44.9 Chronic obstructive pulmonary disease, unspecified; K21.9 Gastro-esophageal reflux disease without esophagitis; F41.9 Anxiety disorder, unspecified; F31.9 Bipolar disorder, unspecified; Z88.8 Allergy status to other drugs, medicaments and biological substances; Z90.49 Acquired absence of other specified parts of digestive tract; Z98.51 Tubal ligation status; F12.90 Cannabis use, unspecified, uncomplicated; F17.200 Nicotine dependence, unspecified, uncomplicated

== ENCOUNTER 2023-11-08 14:23 | Emergency (ER) | payer OTHER, MEDICAID ==
[~2023-11-08] VITALS: Ht 157.4 cm; Wt 81.6 kg
[2023-11-08 14:51] VITALS: BP 130/95
[2023-11-08] MEDS ORDERED: Albuterol Sulf/Ipratropium 3 ML VIAL NEB ONE (15:20)
[2023-11-08] MEDS ORDERED: methylPREDNISolone sod succ 125 MG VIAL IM ONE (15:20)
[2023-11-08 15:31] LABS: BASO % 0.5 % (0.0-1.0); EOS % 0.6 % (1.0-4.0); HEMATOCRIT 43.9 % (37.0-47.0); LYMPH # 1.3 10*3/uL (1.3-4.4); LYMPH % 20.6 % (27.0-41.0); MEAN CELL VOLUME 98.9 fl (81.0-99.0); MEAN CORPUSCULAR HGB 30.4 pg (27.0-31.0); MEAN CORPUSCULAR HGB CONC 30.8 g/dl (33.0-37.0); MEAN PLATELET VOLUME 9.1 fl (9.6-12.3); MONO # 0.6 10*3/uL (0.1-1.0); MONO % 8.9 % (3.0-9.0); NEUT # 4.5 10*3/uL (2.3-7.9); NEUT % 69.2 % (47.0-73.0); PLATELET COUNT AUTOMATED 307 10*3/uL (130-400); RED BLOOD COUNT 4.44 10*6/uL (4.10-5.10); WHITE BLOOD COUNT 6.5 10*3/uL (4.8-10.8)
[2023-11-08 15:52] LABS: ALKALINE PHOSPHATASE 113 U/L (46-116); BUN 9 mg/dl (9-23); CHLORIDE 105 mmol/L (98-107); POTASSIUM 3.8 mmol/L (3.4-5.1); SGPT/ALT 44 U/L (5-49); TOTAL PROTEIN 7.2 gm/dL (6.0-8.0)
[2023-11-08] MEDS ORDERED: PREDNISONE10 MG PO (16:35)
[2023-11-08] MEDS ORDERED: AVPAK AZITHROM250 M1 PO (16:35)
[2023-11-08] MEDS ORDERED: AZITHROMYCIN 250 MG TAB PO ONE (16:40)
== END 2023-11-08 16:42 | disposition home or self-care (01) ==
LOC: ED 14:23
PROVIDERS: Physician Assistant Medical
DX: J44.1 Chronic obstructive pulmonary disease with (acute) exacerbation (principal); K21.9 Gastro-esophageal reflux disease without esophagitis; F41.9 Anxiety disorder, unspecified; F31.9 Bipolar disorder, unspecified; Z88.8 Allergy status to other drugs, medicaments and biological substances; Z98.51 Tubal ligation status; Z90.49 Acquired absence of other specified parts of digestive tract; F12.90 Cannabis use, unspecified, uncomplicated; F17.200 Nicotine dependence, unspecified, uncomplicated

== ENCOUNTER → 2024-01-04 | Outpatient (CLI) | payer OTHER, MEDICAID ==
[~2024-01-04] MED LIST changes: +AVPAK AZITHROM250 M1 PO; +MUCINEX1200 M1 PO; +XARE20MG PO
== END | disposition home or self-care (01) ==
LOC: LAB 12:08
PROVIDERS: ATTEND Internal Medicine Cardiovascular Disease
DX: E11.9 Type 2 diabetes mellitus without complications (principal); I10 Essential (primary) hypertension

== ENCOUNTER → 2024-04-04 | Outpatient (CLI) | payer OTHER, MEDICAID | END | disposition home or self-care (01) | LOC: RAD 12:33 | PROVIDERS: ATTEND Nurse Practitioner | DX: M51.87 Other intervertebral disc disorders, lumbosacral region (principal); M47.817 Spondylosis without myelopathy or radiculopathy, lumbosacral region; M48.061 Spinal stenosis, lumbar region without neurogenic claudication ==

== ENCOUNTER 2024-04-11 13:42 | Emergency (ER) | payer OTHER, MEDICAID ==
[~2024-04-11] VITALS: Ht 157.4 cm; Wt 89.8 kg
[2024-04-11 13:59] VITALS: BP 140/79
[2024-04-11] MEDS ORDERED: METFORMIN HYDR500 MG PO (14:00)
[2024-04-11] MEDS ORDERED: SYMB160 INH (14:01)
[2024-04-11] MEDS ORDERED: PANTOPRAZOLE SO40 MG PO (14:02)
[2024-04-11 14:44] LABS: BASO % 0.1 % (0.0-1.0); HEMATOCRIT 37.6 % (37.0-47.0); LYMPH # 0.7 10*3/uL (1.3-4.4); LYMPH % 9.6 % (27.0-41.0); MEAN CELL VOLUME 95.4 fl (81.0-99.0); MEAN CORPUSCULAR HGB 29.7 pg (27.0-31.0); MEAN CORPUSCULAR HGB CONC 31.1 g/dl (33.0-37.0); MEAN PLATELET VOLUME 9.2 fl (9.6-12.3); MONO # 0.1 10*3/uL (0.1-1.0); MONO % 1.8 % (3.0-9.0); NEUT # 6.5 10*3/uL (2.3-7.9); PLATELET COUNT AUTOMATED 323 10*3/uL (130-400); RED BLOOD COUNT 3.94 10*6/uL (4.10-5.10); RED CELL DISTRI WIDTH 14.2 % (0-14.5); WHITE BLOOD COUNT 7.4 10*3/uL (4.8-10.8)
[2024-04-11 14:55] LABS: ACT PARTIAL THROMBO TIME 29.1 SECONDS (20.0-32.1)
[2024-04-11 15:09] LABS: POTASSIUM 4.7 mmol/L (3.4-5.1); TOTAL PROTEIN 7.1 gm/dL (6.0-8.0)
== END 2024-04-11 16:15 | disposition home or self-care (01) ==
LOC: ED 13:42
PROVIDERS: Emergency Medicine
DX: R05.9 Cough, unspecified (principal); Z20.822 Contact with and (suspected) exposure to COVID-19; R07.89 Other chest pain; R06.02 Shortness of breath; J44.9 Chronic obstructive pulmonary disease, unspecified; K21.9 Gastro-esophageal reflux disease without esophagitis; F31.9 Bipolar disorder, unspecified; F41.9 Anxiety disorder, unspecified; F12.90 Cannabis use, unspecified, uncomplicated; F17.200 Nicotine dependence, unspecified, uncomplicated; Z88.5 Allergy status to narcotic agent; Z88.8 Allergy status to other drugs, medicaments and biological substances; Z98.51 Tubal ligation status; Z90.49 Acquired absence of other specified parts of digestive tract

== ENCOUNTER → 2024-05-02 | Outpatient (CLI) | payer OTHER, MEDICAID ==
[~2024-05-02] MED LIST changes: +METFORMIN HYDR500 MG PO; +PANTOPRAZOLE SO40 MG PO; +SYMB160 INH
== END | disposition home or self-care (01) ==
LOC: CARD 09:26
PROVIDERS: ATTEND Internal Medicine Cardiovascular Disease
DX: I35.1 Nonrheumatic aortic (valve) insufficiency (principal); R07.89 Other chest pain; I26.99 Other pulmonary embolism without acute cor pulmonale; I77.810 Thoracic aortic ectasia; E11.9 Type 2 diabetes mellitus without complications; E78.2 Mixed hyperlipidemia; I25.10 Atherosclerotic heart disease of native coronary artery without angina pectoris; R06.02 Shortness of breath; I11.9 Hypertensive heart disease without heart failure

== ENCOUNTER 2024-05-03 20:43 | Emergency (ER) | payer OTHER, MEDICAID ==
[~2024-05-03] VITALS: Ht 157.4 cm; Wt 88.5 kg
[2024-05-03 20:49] VITALS: BP 114/90
[2024-05-03 21:04] LABS: BASO # 0.1 10*3/uL (0.0-0.1); BASO % 0.7 % (0.0-1.0); EOS # 0.2 10*3/uL (0.0-0.4); EOS % 2.4 % (1.0-4.0); HEMATOCRIT 39.5 % (37.0-47.0); LYMPH # 2.3 10*3/uL (1.3-4.4); LYMPH % 28.4 % (27.0-41.0); MEAN CELL VOLUME 94.7 fl (81.0-99.0); MEAN CORPUSCULAR HGB 29.3 pg (27.0-31.0); MEAN CORPUSCULAR HGB CONC 30.9 g/dl (33.0-37.0); MEAN PLATELET VOLUME 9.1 fl (9.6-12.3); MONO # 0.6 10*3/uL (0.1-1.0); MONO % 7.3 % (3.0-9.0); NEUT # 4.9 10*3/uL (2.3-7.9); PLATELET COUNT AUTOMATED 367 10*3/uL (130-400); RED BLOOD COUNT 4.17 10*6/uL (4.10-5.10); RED CELL DISTRI WIDTH 14.2 % (0-14.5); WHITE BLOOD COUNT 8.1 10*3/uL (4.8-10.8)
[2024-05-03 21:28] LABS: TOTAL PROTEIN 7.2 gm/dL (6.0-8.0)
[2024-05-03] MEDS ORDERED: PREDNISONE20 M1 PO (23:50)
[2024-05-03] MEDS ORDERED: ZITHROMAX250 MG PO (23:50)
[2024-05-03] MEDS ORDERED: methylPREDNISolone sod succ 125 MG VIAL IM ONE (23:55)
[2024-05-10] MEDS ORDERED: ATIVAN2 M1 PO (08:09)
[2024-05-10] MEDS ORDERED: DOXEPIN50 MG PO (08:09)
[2024-05-10] MEDS ORDERED: GLUMETZA500 MG PO (08:10)
[2024-05-10] MEDS ORDERED: LISINOPRIL5 MG PO (08:11)
[2024-05-10] MEDS ORDERED: XARE20MG PO (08:12)
[2024-05-10] MEDS ORDERED: PROTONIX TR40 MG PO (08:12)
== END 2024-05-04 | disposition home or self-care (01) ==
LOC: ED 20:43
PROVIDERS: Internal Medicine
DX: B34.9 Viral infection, unspecified (principal); I12.9 Hypertensive chronic kidney disease with stage 1 through stage 4 chronic kidney disease, or unspecified chronic kidney disease; N18.32 Chronic kidney disease, stage 3b; R74.01 Elevation of levels of liver transaminase levels; R07.9 Chest pain, unspecified; E07.89 Other specified disorders of thyroid; J44.9 Chronic obstructive pulmonary disease, unspecified; K21.9 Gastro-esophageal reflux disease without esophagitis; F31.9 Bipolar disorder, unspecified; F41.9 Anxiety disorder, unspecified; F12.90 Cannabis use, unspecified, uncomplicated; F17.200 Nicotine dependence, unspecified, uncomplicated; Z88.5 Allergy status to narcotic agent; Z88.8 Allergy status to other drugs, medicaments and biological substances; Z90.49 Acquired absence of other specified parts of digestive tract

== ENCOUNTER → 2024-05-10 | Outpatient (CLI) | payer OTHER, MEDICAID ==
[~2024-05-10] MED LIST changes: +ATIVAN2 M1 PO; +GLUMETZA500 MG PO; +LISINOPRIL5 MG PO; +PROTONIX TR40 MG PO; +Regadenoson 0.4 MG/5 ML SYR IV ONE; +Technetium Tc 99M Tetrofosmi 0.23 MG KIT IJ SCH
== END | disposition home or self-care (01) ==
LOC: CARD 01:29
PROVIDERS: ATTEND Internal Medicine Cardiovascular Disease
DX: R07.89 Other chest pain (principal); E11.9 Type 2 diabetes mellitus without complications; E78.2 Mixed hyperlipidemia; I25.10 Atherosclerotic heart disease of native coronary artery without angina pectoris; I10 Essential (primary) hypertension; R06.02 Shortness of breath

== ENCOUNTER → 2024-06-29 | Outpatient (CLI) | payer OTHER, MEDICAID ==
[~2024-06-29] MED LIST changes: -Regadenoson 0.4 MG/5 ML SYR IV ONE; -Technetium Tc 99M Tetrofosmi 0.23 MG KIT IJ SCH
[2024-06-29 17:04] LABS: BASO # 0.1 10*3/uL (0.0-0.1); BASO % 0.8 % (0.0-1.0); EOS # 0.4 10*3/uL (0.0-0.4); HEMATOCRIT 37.1 % (37.0-47.0); MEAN CELL VOLUME 94.2 fl (81.0-99.0); MEAN CORPUSCULAR HGB 29.2 pg (27.0-31.0); MEAN PLATELET VOLUME 8.7 fl (9.6-12.3); MONO # 0.6 10*3/uL (0.1-1.0); MONO % 7.8 % (3.0-9.0); NEUT # 4.3 10*3/uL (2.3-7.9); NEUT % 57.1 % (47.0-73.0); PLATELET COUNT AUTOMATED 329 10*3/uL (130-400); RED BLOOD COUNT 3.94 10*6/uL (4.10-5.10); RED CELL DISTRI WIDTH 14.4 % (0-14.5); WHITE BLOOD COUNT 7.5 10*3/uL (4.8-10.8)
== END | disposition home or self-care (01) ==
LOC: LAB 16:43
PROVIDERS: ATTEND Internal Medicine Critical Care Medicine
DX: J45.50 Severe persistent asthma, uncomplicated (principal); I26.99 Other pulmonary embolism without acute cor pulmonale; R91.1 Solitary pulmonary nodule; Z68.37 Body mass index [BMI] 37.0-37.9, adult

== ENCOUNTER 2024-08-18 10:29 | Emergency (ER) | payer OTHER, MEDICAID ==
[~2024-08-18] VITALS: Ht 157.4 cm; Wt 90.7 kg
[~2024-08-18 10:29] MED LIST changes: +ASPIRIN CHEWABL81 MG PO; +BREZTRI AEROS10.7 GM IH; +CLOPIDOGREL75 MG PO; +COZAAR25 M1 PO; +D3-200050 MCG PO; +LEVOFLOXACIN750 M2 PO; +LIPITOR40 MG PO; +NATURE'S BLEND F1 MG PO; +PLAVIX75 M1 PO; +TOPROL XL25 MG PO
[2024-08-18 10:47] VITALS: BP 134/69
[2024-08-18] MEDS ORDERED: Ondansetron Hydrochloride 4 MG/2 ML VIAL IV ONE (11:05)
[2024-08-18] MEDS ORDERED: SODIUM CHLORIDE 0.9% 1,000 ML IV ONE (11:05)
[2024-08-18] MEDS ORDERED: MORPHINE Sulfate 2 MG/ML SYR IV ONE (11:10)
[2024-08-18 11:14] LABS: BILIRUBIN Negative (Negative); BLOOD 3+ (Negative); CLARITY Clear (Clear); COLOR Orange (Yellow); GLUCOSE Negative (Negative); KETONE Negative (Negative); LEUKO ESTERASE 2+ (Negative); NITRITE Negative (Negative); SPECIFIC GRAVITY <= 1.005 (1.001-1.030); UROBILINOGEN 0.2 E.U./dl (0.0-1.0)
[2024-08-18 11:28] LABS: BASO % 0.5 % (0.0-1.0); EOS # 0.1 10*3/uL (0.0-0.4); EOS % 1.1 % (1.0-4.0); HEMATOCRIT 36.7 % (37.0-47.0); MEAN CELL VOLUME 96.6 fl (81.0-99.0); MEAN CORPUSCULAR HGB 29.7 pg (27.0-31.0); MEAN CORPUSCULAR HGB CONC 30.8 g/dl (33.0-37.0); MONO # 0.5 10*3/uL (0.1-1.0); MONO % 5.9 % (3.0-9.0); NEUT # 6.8 10*3/uL (2.3-7.9); NEUT % 77.4 % (47.0-73.0); PLATELET COUNT AUTOMATED 319 10*3/uL (130-400); RED CELL DISTRI WIDTH 14.7 % (0-14.5); WHITE BLOOD COUNT 8.8 10*3/uL (4.8-10.8)
[2024-08-18 11:32] LABS: BACTERIA 1+; RBC 16-20 rbc/hpf (0-2); WBC 31-40 wbc/hpf (0-5)
[2024-08-18] MEDS ORDERED: cefTRIAXone Sodium 1 GM/10 ML SYR IV ONE (11:45)
[2024-08-18] MEDS ORDERED: Albuterol Sulfate 2.5 MG/3 ML VIAL NEB ONE (11:45)
[2024-08-18 11:52] LABS: POTASSIUM 4.1 mmol/L (3.4-5.1)
[2024-08-18] MEDS ORDERED: cefTRIAXone Sodium 1 GM VIAL IM ONE (12:40)
== END 2024-08-18 13:29 | disposition home or self-care (01) ==
LOC: ED 10:29
PROVIDERS: Emergency Medicine
DX: N39.0 Urinary tract infection, site not specified (principal); M54.50 Low back pain, unspecified; I12.9 Hypertensive chronic kidney disease with stage 1 through stage 4 chronic kidney disease, or unspecified chronic kidney disease; N18.9 Chronic kidney disease, unspecified; J44.9 Chronic obstructive pulmonary disease, unspecified; E78.5 Hyperlipidemia, unspecified; F31.9 Bipolar disorder, unspecified; F12.99 Cannabis use, unspecified with unspecified cannabis-induced disorder; Z79.899 Other long term (current) drug therapy; Z88.8 Allergy status to other drugs, medicaments and biological substances; Z90.49 Acquired absence of other specified parts of digestive tract

== ENCOUNTER 2024-09-07 21:05 | Emergency (ER) | payer OTHER, MEDICAID ==
[~2024-09-07] VITALS: Ht 157.4 cm; Wt 90.7 kg
[2024-09-07 21:14] VITALS: BP 132/93
[2024-09-07] MEDS ORDERED: Albuterol Sulf/Ipratropium 3 ML VIAL NEB ONE (21:35)
[2024-09-07] MEDS ORDERED: methylPREDNISolone sod succ 125 MG VIAL IM ONE (21:40)
[2024-09-07 21:45] LABS: BASO % 0.6 % (0.0-1.0); EOS # 0.2 10*3/uL (0.0-0.4); EOS % 2.9 % (1.0-4.0); HEMATOCRIT 36.1 % (37.0-47.0); MEAN CELL VOLUME 94.5 fl (81.0-99.0); MEAN CORPUSCULAR HGB 28.8 pg (27.0-31.0); MEAN CORPUSCULAR HGB CONC 30.5 g/dl (33.0-37.0); MEAN PLATELET VOLUME 9.3 fl (9.6-12.3); MONO # 0.5 10*3/uL (0.1-1.0); MONO % 6.4 % (3.0-9.0); NEUT # 4.2 10*3/uL (2.3-7.9); NEUT % 59.7 % (47.0-73.0); PLATELET COUNT AUTOMATED 289 10*3/uL (130-400); RED BLOOD COUNT 3.82 10*6/uL (4.10-5.10); RED CELL DISTRI WIDTH 14.6 % (0-14.5)
[2024-09-07 22:08] LABS: BUN 15 mg/dl (9-23); CHLORIDE 103 mmol/L (98-107); POTASSIUM 3.8 mmol/L (3.4-5.1)
[2024-09-07] MEDS ORDERED: ZITHROMAX250 MG PO (22:36)
[2024-09-07] MEDS ORDERED: AZITHROMYCIN 250 MG TAB PO ONE (22:40)
[2024-09-07] MEDS ORDERED: PREDNISONE20 M1 PO (22:40)
== END 2024-09-07 22:53 | disposition home or self-care (01) ==
LOC: ED 21:05
PROVIDERS: Nurse Practitioner Family
DX: J44.1 Chronic obstructive pulmonary disease with (acute) exacerbation (principal); Z88.8 Allergy status to other drugs, medicaments and biological substances; Z79.899 Other long term (current) drug therapy; Z79.82 Long term (current) use of aspirin; Z90.49 Acquired absence of other specified parts of digestive tract; Z95.5 Presence of coronary angioplasty implant and graft; Z87.891 Personal history of nicotine dependence

== ENCOUNTER 2024-09-26 20:17 | Emergency (ER) | payer OTHER, MEDICAID ==
[~2024-09-26] VITALS: Ht 157.4 cm; Wt 90.3 kg
[2024-09-26 20:17] VITALS: BP 150/84
[2024-09-26] MEDS ORDERED: Albuterol Sulf/Ipratropium 3 ML VIAL NEB ONE (20:45)
[2024-09-26] MEDS ORDERED: methylPREDNISolone sod succ 125 MG VIAL IM ONE (20:45)
[2024-09-26 21:11] LABS: BASO % 0.4 % (0.0-1.0); EOS # 0.2 10*3/uL (0.0-0.4); EOS % 1.9 % (1.0-4.0); HEMATOCRIT 34.4 % (37.0-47.0); MEAN CELL VOLUME 93.7 fl (81.0-99.0); MEAN CORPUSCULAR HGB 29.4 pg (27.0-31.0); MEAN CORPUSCULAR HGB CONC 31.4 g/dl (33.0-37.0); MEAN PLATELET VOLUME 9.2 fl (9.6-12.3); MONO # 0.6 10*3/uL (0.1-1.0); MONO % 5.8 % (3.0-9.0); NEUT # 6.7 10*3/uL (2.3-7.9); NEUT % 71.1 % (47.0-73.0); PLATELET COUNT AUTOMATED 305 10*3/uL (130-400); RED BLOOD COUNT 3.67 10*6/uL (4.10-5.10); RED CELL DISTRI WIDTH 14.9 % (0-14.5); WHITE BLOOD COUNT 9.5 10*3/uL (4.8-10.8)
[2024-09-26 21:30] LABS: POTASSIUM 4.1 mmol/L (3.4-5.1)
== END 2024-09-26 22:39 | disposition home or self-care (01) ==
LOC: ED 20:17
PROVIDERS: Internal Medicine
DX: J44.1 Chronic obstructive pulmonary disease with (acute) exacerbation (principal); E87.20 Acidosis, unspecified; N18.31 Chronic kidney disease, stage 3a; D63.1 Anemia in chronic kidney disease; K21.9 Gastro-esophageal reflux disease without esophagitis; F31.9 Bipolar disorder, unspecified; F41.9 Anxiety disorder, unspecified; Z79.82 Long term (current) use of aspirin; Z79.899 Other long term (current) drug therapy; Z88.8 Allergy status to other drugs, medicaments and biological substances; Z90.49 Acquired absence of other specified parts of digestive tract; Z98.51 Tubal ligation status; Z95.1 Presence of aortocoronary bypass graft; Z98.890 Other specified postprocedural states

== ENCOUNTER 2024-10-27 02:41 | Emergency (ER) | payer OTHER, MEDICAID ==
[~2024-10-27] VITALS: Ht 157.4 cm; Wt 90.7 kg
[2024-10-27 02:53] VITALS: BP 138/74
[2024-10-27] MEDS ORDERED: Ondansetron Hydrochloride 4 MG/2 ML VIAL IV ONE (03:20)
[2024-10-27] MEDS ORDERED: SODIUM CHLORIDE 0.9% 1,000 ML IV ONE (03:20)
[2024-10-27 03:35] LABS: BASO % 0.2 % (0.0-1.0); EOS # 0.1 10*3/uL (0.0-0.4); EOS % 0.8 % (1.0-4.0); HEMATOCRIT 39.6 % (37.0-47.0); MEAN CELL VOLUME 93.8 fl (81.0-99.0); MEAN CORPUSCULAR HGB 28.7 pg (27.0-31.0); MEAN CORPUSCULAR HGB CONC 30.6 g/dl (33.0-37.0); MEAN PLATELET VOLUME 9.2 fl (9.6-12.3); MONO # 0.6 10*3/uL (0.1-1.0); MONO % 4.5 % (3.0-9.0); NEUT # 11.3 10*3/uL (2.3-7.9); NEUT % 81.9 % (47.0-73.0); PLATELET COUNT AUTOMATED 323 10*3/uL (130-400); RED BLOOD COUNT 4.22 10*6/uL (4.10-5.10); RED CELL DISTRI WIDTH 15.2 % (0-14.5); WHITE BLOOD COUNT 13.8 10*3/uL (4.8-10.8)
[2024-10-27 03:56] LABS: ALKALINE PHOSPHATASE 129 U/L (46-116); BUN 14 mg/dl (9-23); CHLORIDE 98 mmol/L (98-107); POTASSIUM 3.9 mmol/L (3.4-5.1); SGPT/ALT 61 U/L (5-49); TOTAL PROTEIN 7.2 gm/dL (6.0-8.0)
[2024-10-27] MEDS ORDERED: Ondansetron4 MG PO (04:29)
== END 2024-10-27 04:52 | disposition home or self-care (01) ==
LOC: ED 02:41
PROVIDERS: Internal Medicine
DX: A08.4 Viral intestinal infection, unspecified (principal); R11.2 Nausea with vomiting, unspecified; Z88.8 Allergy status to other drugs, medicaments and biological substances; Z79.899 Other long term (current) drug therapy; Z79.82 Long term (current) use of aspirin; Z90.49 Acquired absence of other specified parts of digestive tract; Z95.5 Presence of coronary angioplasty implant and graft; Z87.891 Personal history of nicotine dependence

== ENCOUNTER 2024-11-13 14:31 | Inpatient (IN) | payer OTHER, MEDICAID ==
[~2024-11-13] VITALS: Ht 157.4 cm; Wt 96.2 kg
[~2024-11-13 14:31] MED LIST changes: +Ondansetron4 MG PO
[2024-11-13 14:39] VITALS: BP 149/79
[2024-11-13 15:00] LABS: BASO # 0.1 10*3/uL (0.0-0.1); BASO % 1.1 % (0.0-1.0); EOS # 0.3 10*3/uL (0.0-0.4); EOS % 4.6 % (1.0-4.0); HEMATOCRIT 37.8 % (37.0-47.0); MEAN CELL VOLUME 95.7 fl (81.0-99.0); MEAN CORPUSCULAR HGB 28.9 pg (27.0-31.0); MEAN CORPUSCULAR HGB CONC 30.2 g/dl (33.0-37.0); MONO # 0.4 10*3/uL (0.1-1.0); MONO % 6.3 % (3.0-9.0); NEUT # 3.8 10*3/uL (2.3-7.9); NEUT % 60.9 % (47.0-73.0); PLATELET COUNT AUTOMATED 388 10*3/uL (130-400); RED BLOOD COUNT 3.95 10*6/uL (4.10-5.10); RED CELL DISTRI WIDTH 14.8 % (0-14.5); WHITE BLOOD COUNT 6.3 10*3/uL (4.8-10.8)
[2024-11-13 15:11] LABS: ACT PARTIAL THROMBO TIME 24.7 SECONDS (20.0-32.1)
[2024-11-13 15:26] LABS: TOTAL PROTEIN 7.1 gm/dL (6.0-8.0)
[2024-11-13] MEDS ORDERED: MORPHINE Sulfate 2 MG/ML SYR IV ONE (17:10)
[2024-11-13] MEDS ORDERED: BISACODYL 10 MG SUPP R PRN (17:40)
[2024-11-13] MEDS ORDERED: ACETAMINOPHEN 650 MG SUPP R PRN (17:40)
[2024-11-13] MEDS ORDERED: BISACODYL 5 MG TAB PO PRN (17:40)
[2024-11-13] MEDS ORDERED: Magnesium Hydroxide 30 ML UDC PO PRN (17:40)
[2024-11-13] MEDS ORDERED: Ondansetron Hydrochloride 4 MG/2 ML VIAL IV PRN (17:40)
[2024-11-13] MEDS ORDERED: ACETAMINOPHEN 325 MG TAB PO PRN (17:40)
[2024-11-13] MEDS ORDERED: Acetaminophen/Hydrocodone 5 MG/325 MG TABLET PO PRN (17:40)
[2024-11-13] MEDS ORDERED: Albuterol Sulf/Ipratropium 3 ML VIAL NEB ONE (17:50)
[2024-11-13] MEDS ORDERED: Albuterol Sulf/Ipratropium 3 ML VIAL NEB SCH (17:50)
[2024-11-13] MEDS ORDERED: VENLAFAXINE225 MG PO (17:52)
[2024-11-13] MEDS ORDERED: Pantoprazole Sodium 40 MG TAB PO SCH (18:00)
[2024-11-13] MEDS ORDERED: FUROSEMIDE 40 MG TAB PO SCH (18:10)
[2024-11-13 18:59] VITALS: BP 123/76
[2024-11-13 20:38] VITALS: BP 111/62
[2024-11-13] MEDS ORDERED: LORazepam 2 MG TAB PO SCH (22:00)
[2024-11-13] MEDS ORDERED: Doxepin Hydrochloride 25 MG CAP PO SCH (22:00)
[2024-11-13] MEDS ORDERED: METOPROLOL SUCCINATE XR 25 MG TAB PO SCH (22:00)
[2024-11-14 05:35] VITALS: BP 118/68
[2024-11-14 06:16] LABS: BASO # 0.1 10*3/uL (0.0-0.1); BASO % 0.9 % (0.0-1.0); EOS # 0.4 10*3/uL (0.0-0.4); EOS % 5.7 % (1.0-4.0); HEMATOCRIT 36.3 % (37.0-47.0); MEAN CELL VOLUME 95.3 fl (81.0-99.0); MEAN CORPUSCULAR HGB 28.9 pg (27.0-31.0); MEAN CORPUSCULAR HGB CONC 30.3 g/dl (33.0-37.0); MEAN PLATELET VOLUME 9.4 fl (9.6-12.3); MONO # 0.5 10*3/uL (0.1-1.0); NEUT # 3.8 10*3/uL (2.3-7.9); PLATELET COUNT AUTOMATED 370 10*3/uL (130-400); RED BLOOD COUNT 3.81 10*6/uL (4.10-5.10); WHITE BLOOD COUNT 6.6 10*3/uL (4.8-10.8)
[2024-11-14 06:51] LABS: FREE T4 1.1 ng/dl (0.89-1.76); POTASSIUM 3.9 mmol/L (3.4-5.1)
[2024-11-14 09:45] VITALS: BP 119/71
[2024-11-14] MEDS ORDERED: LOPRESSOR25 MG PO (09:49)
[2024-11-14] MEDS ORDERED: MONTELUKAST SOD10 MG PO (09:51)
[2024-11-14] MEDS ORDERED: BREZTRI AEROS10.7 GM INH (09:53)
[2024-11-14] MEDS ORDERED: VENT7GM INH (09:53)
[2024-11-14] MEDS ORDERED: Enoxaparin Sodium 40 MG/0.4 ML SYR SC SCH (10:00)
[2024-11-14] MEDS ORDERED: Losartan Potassium 25 MG TAB PO SCH (10:00)
[2024-11-14] MEDS ORDERED: ATORVASTATIN CALCIUM 40 MG TABLET PO SCH (10:00)
[2024-11-14] MEDS ORDERED: ASPIRIN, CHEWABLE 81 MG TAB PO SCH (10:00)
[2024-11-14] MEDS ORDERED: Clopidogrel Hydrogen Sulfate 75 MG TAB PO SCH (10:00)
[2024-11-14] MEDS ORDERED: BREXPIPRAZOLE 2 MG TABLET PO SCH (10:00)
[2024-11-14] MEDS ORDERED: Venlafaxine Hydrochloride 75 MG CAP PO SCH (10:00)
[2024-11-14 12:09] VITALS: BP 133/81
[2024-11-14 18:19] VITALS: BP 107/61
[2024-11-14 21:34] VITALS: BP 121/71
[2024-11-14] MEDS ORDERED: Metoprolol Tartrate 25 MG TAB PO SCH (22:00)
[2024-11-15 00:10] VITALS: BP 118/56
[2024-11-15 07:55] VITALS: BP 104/58
[2024-11-15] MEDS ORDERED: methylPREDNISolone sod succ 40 MG VIAL IV SCH (11:15)
[2024-11-15 12:00] VITALS: BP 110/66
[2024-11-15 16:00] VITALS: BP 117/71
[2024-11-15 20:00] VITALS: BP 111/76
[2024-11-16] VITALS: BP 103/77
[2024-11-16 06:36] LABS: BASO % 0.1 % (0.0-1.0); HEMATOCRIT 39.4 % (37.0-47.0); MEAN CELL VOLUME 92.7 fl (81.0-99.0); MEAN CORPUSCULAR HGB 28.5 pg (27.0-31.0); MEAN CORPUSCULAR HGB CONC 30.7 g/dl (33.0-37.0); MEAN PLATELET VOLUME 9.5 fl (9.6-12.3); MONO # 0.1 10*3/uL (0.1-1.0); MONO % 1.6 % (3.0-9.0); NEUT # 7.5 10*3/uL (2.3-7.9); NEUT % 84.8 % (47.0-73.0); PLATELET COUNT AUTOMATED 458 10*3/uL (130-400); RED BLOOD COUNT 4.25 10*6/uL (4.10-5.10); RED CELL DISTRI WIDTH 14.7 % (0-14.5); WHITE BLOOD COUNT 8.9 10*3/uL (4.8-10.8)
[2024-11-16 06:58] LABS: POTASSIUM 3.8 mmol/L (3.4-5.1)
[2024-11-16] MEDS ORDERED: Regadenoson 0.4 MG/5 ML SYR IV ONE (07:26)
[2024-11-16 07:45] VITALS: BP 112/68
[2024-11-16] MEDS ORDERED: Enoxaparin Sodium 30 MG/0.3 ML SYR SC SCH (10:00)
[2024-11-16 12:00] VITALS: BP 122/88
== END 2024-11-16 15:40 | disposition home or self-care (01) | DRG 303 ==
LOC: ED 14:31 → EDHOLD 17:16 → 4E 17:16 → EDHOLD 17:16 → 4E 11-14 23:51
PROVIDERS: Nurse Practitioner Family; Student in an Organized Health Care Education/Training Program; ADMIT Internal Medicine; ATTEND Internal Medicine
PROC: 4A02XM4 Measurement of Cardiac Total Activity, External Approach (ICD-10-PCS; principal; 2024-11-16)
PROC: 3E073KZ Introduction of Other Diagnostic Substance into Coronary Artery, Percutaneous Approach (ICD-10-PCS; 2024-11-16)
DX: I25.10 Atherosclerotic heart disease of native coronary artery without angina pectoris (principal); D64.9 Anemia, unspecified; N18.31 Chronic kidney disease, stage 3a; J44.9 Chronic obstructive pulmonary disease, unspecified; I12.9 Hypertensive chronic kidney disease with stage 1 through stage 4 chronic kidney disease, or unspecified chronic kidney disease; E11.22 Type 2 diabetes mellitus with diabetic chronic kidney disease; E66.9 Obesity, unspecified; F31.9 Bipolar disorder, unspecified; F41.1 Generalized anxiety disorder; K21.9 Gastro-esophageal reflux disease without esophagitis; M54.16 Radiculopathy, lumbar region; E78.5 Hyperlipidemia, unspecified; Z87.891 Personal history of nicotine dependence; Z86.711 Personal history of pulmonary embolism; Z88.8 Allergy status to other drugs, medicaments and biological substances; Z91.09 Other allergy status, other than to drugs and biological substances; Z79.899 Other long term (current) drug therapy; Z79.01 Long term (current) use of anticoagulants; Z79.2 Long term (current) use of antibiotics; Z90.49 Acquired absence of other specified parts of digestive tract; Z95.5 Presence of coronary angioplasty implant and graft; Z82.49 Family history of ischemic heart disease and other diseases of the circulatory system; Z83.438 Family history of other disorder of lipoprotein metabolism and other lipidemia; Z83.3 Family history of diabetes mellitus; Z82.3 Family history of stroke; Z68.36 Body mass index [BMI] 36.0-36.9, adult

== ENCOUNTER → 2025-01-04 | Outpatient (CLI) | payer OTHER, MEDICAID ==
[~2025-01-04] MED LIST changes: +BREZTRI AEROS10.7 GM INH; +LOPRESSOR25 MG PO; +MONTELUKAST SOD10 MG PO; +VENLAFAXINE225 MG PO; +VENT7GM INH
== END | disposition home or self-care (01) ==
LOC: RAD 12-28 10:00
PROVIDERS: ATTEND Nurse Practitioner
DX: M85.80 Other specified disorders of bone density and structure, unspecified site (principal); R29.890 Loss of height; Z78.0 Asymptomatic menopausal state

== ENCOUNTER → 2025-01-16 | Outpatient (CLI) | payer OTHER, MEDICAID | END | disposition home or self-care (01) | LOC: MAMMO 01-02 14:00 | PROVIDERS: ATTEND Nurse Practitioner | DX: Z12.31 Encounter for screening mammogram for malignant neoplasm of breast (principal); R92.323 Mammographic fibroglandular density, bilateral breasts ==

== ENCOUNTER 2025-03-19 13:45 | Emergency (ER) | payer OTHER, MEDICAID ==
[~2025-03-19] VITALS: Ht 157.4 cm; Wt 93.0 kg
[2025-03-19 14:00] VITALS: BP 126/85
[2025-03-19] MEDS ORDERED: IOHEXOL 350 MG/ML 100 ML VIAL IV ONE (14:40)
[2025-03-19] MEDS ORDERED: SODIUM CHLORIDE 0.9% 100 ML BAG IV ONE (14:40)
[2025-03-19 15:03] LABS: BASO # 0.0 10*3/uL (0.0-0.1); BASO % 0.1 % (0.0-1.0); EOS # 0.0 10*3/uL (0.0-0.4); EOS % 0.0 % (1.0-4.0); MEAN CELL VOLUME 92.3 fl (81.0-99.0); MEAN CORPUSCULAR HGB 28.5 pg (27.0-31.0); MEAN PLATELET VOLUME 9.3 fl (9.6-12.3); MONO # 0.5 10*3/uL (0.1-1.0); MONO % 6.8 % (3.0-9.0); NEUT # 5.0 10*3/uL (2.3-7.9); NEUT % 68.3 % (47.0-73.0); NUCLEATED RED BLOOD CELL 0.0 % (0.0-0.0); NUCLEATED RED BLOOD CELL 0.0 10*3/uL (0.0-0.0); PLATELET COUNT AUTOMATED 361 10*3/uL (130-400); RED CELL DISTRI WIDTH 15.1 % (0-14.5)
[2025-03-19 15:32] LABS: BUN 10.0 mg/dl (9-23); CPK 50.0 U/L (34-171)
[2025-03-19] MEDS ORDERED: SODIUM CHLORIDE 0.9% 100 ML IV ONE (16:06)
[2025-03-19] MEDS ORDERED: PREDNISONE20 M1 PO (17:27)
== END 2025-03-19 17:42 | disposition home or self-care (01) ==
LOC: ED 13:45
PROVIDERS: Emergency Medicine
DX: F41.9 Anxiety disorder, unspecified (principal); J44.1 Chronic obstructive pulmonary disease with (acute) exacerbation; I25.10 Atherosclerotic heart disease of native coronary artery without angina pectoris; E66.9 Obesity, unspecified; Z95.5 Presence of coronary angioplasty implant and graft; Z88.8 Allergy status to other drugs, medicaments and biological substances; Z79.899 Other long term (current) drug therapy; Z79.82 Long term (current) use of aspirin; Z90.49 Acquired absence of other specified parts of digestive tract; Z87.891 Personal history of nicotine dependence; Z68.30 Body mass index [BMI] 30.0-30.9, adult

== ENCOUNTER 2025-04-06 16:44 | Emergency (ER) | payer OTHER, MEDICAID ==
[~2025-04-06] VITALS: Ht 157.4 cm; Wt 93.0 kg
[2025-04-06 17:02] VITALS: BP 131/78
[2025-04-06] MEDS ORDERED: CLINDAMYCIN HCL 300 MG CAPSULE PO ONE ×2 (17:35)
[2025-04-06] MEDS ORDERED: Acetaminophen/Oxycodone 5 MG/325 MG TABLET PO ONE (17:35)
[2025-04-06] MEDS ORDERED: CLEOCIN HCL300 MG PO (17:44)
== END 2025-04-06 17:57 | disposition home or self-care (01) ==
LOC: ED 16:44
DX: K02.9 Dental caries, unspecified (principal); K04.7 Periapical abscess without sinus; K08.89 Other specified disorders of teeth and supporting structures; M27.3 Alveolitis of jaws; F12.90 Cannabis use, unspecified, uncomplicated; E11.9 Type 2 diabetes mellitus without complications; E78.00 Pure hypercholesterolemia, unspecified; F17.210 Nicotine dependence, cigarettes, uncomplicated; Z88.5 Allergy status to narcotic agent; Z88.8 Allergy status to other drugs, medicaments and biological substances

== ENCOUNTER → 2025-04-13 | Outpatient (CLI) | payer OTHER, MEDICAID ==
[~2025-04-13] MED LIST changes: +CLEOCIN HCL300 MG PO
== END | disposition home or self-care (01) ==
LOC: US 03-30 01:39
PROVIDERS: ATTEND Nurse Practitioner
DX: K76.0 Fatty (change of) liver, not elsewhere classified (principal); R74.8 Abnormal levels of other serum enzymes; Z90.49 Acquired absence of other specified parts of digestive tract; Z98.890 Other specified postprocedural states

== ENCOUNTER 2025-04-29 13:24 | Emergency (ER) | payer OTHER, MEDICAID ==
[~2025-04-29] VITALS: Ht 157.4 cm; Wt 89.8 kg
[2025-04-29 13:49] VITALS: BP 138/82
[2025-04-29] MEDS ORDERED: Albuterol Sulf/Ipratropium 3 ML VIAL NEB ONE (14:10)
[2025-04-29 14:42] LABS: BASO # 0.0 10*3/uL (0.0-0.1); BASO % 0.2 % (0.0-1.0); EOS # 0.0 10*3/uL (0.0-0.4); EOS % 0.0 % (1.0-4.0); MEAN CELL VOLUME 92.1 fl (81.0-99.0); MEAN CORPUSCULAR HGB 27.6 pg (27.0-31.0); MEAN PLATELET VOLUME 9.3 fl (9.6-12.3); MONO # 0.5 10*3/uL (0.1-1.0); MONO % 7.3 % (3.0-9.0); NEUT # 3.9 10*3/uL (2.3-7.9); NEUT % 61.2 % (47.0-73.0); NUCLEATED RED BLOOD CELL 0.0 % (0.0-0.0); NUCLEATED RED BLOOD CELL 0.0 10*3/uL (0.0-0.0); PLATELET COUNT AUTOMATED 311 10*3/uL (130-400); RED CELL DISTRI WIDTH 15.7 % (0-14.5)
[2025-04-29] MEDS ORDERED: Water, Sterile 10 ML VIAL ONE (14:52)
[2025-04-29 15:07] LABS: BUN 11.0 mg/dl (9-23)
[2025-04-29] MEDS ORDERED: AVPAK AZITHROM250 M1 PO (15:50)
[2025-04-29] MEDS ORDERED: PREDNISONE20 M1 PO (15:50)
[2025-04-29] MEDS ORDERED: AZITHROMYCIN 250 MG TAB PO ONE (15:55)
== END 2025-04-29 16:01 | disposition home or self-care (01) ==
LOC: ED 13:24
PROVIDERS: Nurse Practitioner Family
DX: J44.1 Chronic obstructive pulmonary disease with (acute) exacerbation (principal); F32.9 Major depressive disorder, single episode, unspecified; K21.9 Gastro-esophageal reflux disease without esophagitis; F41.1 Generalized anxiety disorder; J44.9 Chronic obstructive pulmonary disease, unspecified; I25.10 Atherosclerotic heart disease of native coronary artery without angina pectoris; F41.9 Anxiety disorder, unspecified; F12.90 Cannabis use, unspecified, uncomplicated; Z88.5 Allergy status to narcotic agent; Z90.49 Acquired absence of other specified parts of digestive tract; Z88.8 Allergy status to other drugs, medicaments and biological substances

== ENCOUNTER 2025-06-01 11:06 | Emergency (ER) | payer OTHER, MEDICAID ==
[~2025-06-01] VITALS: Ht 157.4 cm; Wt 82.6 kg
[2025-06-01 11:16] VITALS: BP 144/74
[2025-06-01] MEDS ORDERED: Albuterol Sulf/Ipratropium 3 ML VIAL NEB ONE (11:55)
[2025-06-01] MEDS ORDERED: Ondansetron Hydrochloride 4 MG/2 ML VIAL IV ONE (11:55)
[2025-06-01 12:18] LABS: BASO # 0.0 10*3/uL (0.0-0.1); BASO % 0.2 % (0.0-1.0); EOS # 0.0 10*3/uL (0.0-0.4); EOS % 0.0 % (1.0-4.0); MEAN CELL VOLUME 91.8 fl (81.0-99.0); MEAN CORPUSCULAR HGB 27.6 pg (27.0-31.0); MEAN PLATELET VOLUME 9.6 fl (9.6-12.3); MONO # 0.7 10*3/uL (0.1-1.0); MONO % 6.6 % (3.0-9.0); NEUT # 7.4 10*3/uL (2.3-7.9); NEUT % 72.5 % (47.0-73.0); NUCLEATED RED BLOOD CELL 0.0 % (0.0-0.0); NUCLEATED RED BLOOD CELL 0.0 10*3/uL (0.0-0.0); PLATELET COUNT AUTOMATED 360 10*3/uL (130-400); RED CELL DISTRI WIDTH 15.6 % (0-14.5)
[2025-06-01] MEDS ORDERED: Ondansetron Hydrochloride 4 MG TAB PO ONE (12:25)
[2025-06-01] MEDS ORDERED: Dexamethasone Sodium Phospha 20 MG/5 ML VIAL IM ONE (12:25)
[2025-06-01 12:37] LABS: BUN 14.0 mg/dl (9-23)
[2025-06-01] MEDS ORDERED: Ondansetron4 MG PO (12:55)
[2025-06-01] MEDS ORDERED: Ipratropium Brom3 ML INH (12:55)
[2025-06-01] MEDS ORDERED: Meclizine25 MG PO (12:55)
== END 2025-06-01 13:06 | disposition home or self-care (01) ==
LOC: ED 11:06
PROVIDERS: Emergency Medicine
DX: R42 Dizziness and giddiness (principal); J44.1 Chronic obstructive pulmonary disease with (acute) exacerbation; N18.9 Chronic kidney disease, unspecified; K21.9 Gastro-esophageal reflux disease without esophagitis; F41.9 Anxiety disorder, unspecified; F31.9 Bipolar disorder, unspecified; F12.90 Cannabis use, unspecified, uncomplicated; F17.210 Nicotine dependence, cigarettes, uncomplicated; Z88.8 Allergy status to other drugs, medicaments and biological substances; Z98.890 Other specified postprocedural states; Z90.49 Acquired absence of other specified parts of digestive tract; Z88.5 Allergy status to narcotic agent